=== PATIENT | male | born 1970 | race Hispanic/Latino ===

== ENCOUNTER 2016-06-07 10:52 | Emergency (ER) | payer SELFPAY ==
[~2016-06-07 10:52] MED LIST: BACL20TA PO; HYDR1TAB69 PO; MIRT30TA PO; PROT40T PO; TYL325 PO; tramadol PO
[2016-06-07 10:56] VITALS: BP 164/101; PULSE 63; RESP 18; O2SAT 98
--- NOTE | 2016-06-07 10:58 | ED.REPORT ---
HPI-Chest Pain 40 and Over Date of Service Jun 07, 2016 ED Provider: Otherwise healthy 46-year-old male presents with chief complaint of tightness in his chest. He reports a one-month history of tightness in his chest that has at times been associated with pain on the left side of his chest radiating into his arm. Intermittent over the last month. He has had periods where he felt weak and has fallen. He reports pain with inspiration, reduced exercise tolerance, palpitations and orthopnea. 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 He denies sick contacts, cough, wheezing, fever, chills, travel, recent hospitalizations, recent trauma, upper respiratory symptoms. Denies history of cancer, [place], heart disease, diabetes, hypertension, hyperlipidemia. He currently takes 81 mg of aspirin daily Nursing Notes Stated Complaint: CHEST PAIN Chief Complaint: Chest Pain Nursing Notes Reviewed: Yes Allergies: Coded Allergies: No Known Allergies (Unverified Allergy, Unknown, 06/07/16) Scheduled Azithromycin (Zithromax (Z-Nba)) 250 Mg Tablet 250 MG PO DIRECTED Take two tablets by mouth on day 1, then take one tablet daily on days 2 through 5. General Time Seen by MD: 10:57 Chief Complaint Chest pain Hx Obtained From: Patient Arrived By: Walk-in Sudden in Onset?: No Review of Systems Review of Systems Note: Negative unless stated otherwise in history of present illness Cardiovascular: Reports: Chest pain Complete sys rev & neg: except as marked. Physical Exam General: Well appearing, well developed, obese, no acute distress. Head: Atraumatic, normocephalic. No mastoid tenderness. Eyes: No scleral icterus or injection. No discharge. PERRL. Vision grossly intact. Ears: Pinna and tragus nontender with manipulation. External auditory canal patent, atraumatic and without discharge. Tympanic membrane riggins, shiny and translucent without fluid, bulging, retraction or perforation. Hearing grossly intact. Nose: Symmetrical, nares patent without discharge. No frontal or maxillary sinus tenderness. Mouth/pharynx: normal dentition, mucus membranes moist. Tonsils 2+ and symmetrical, uvula midline. Pharynx noninjected, no cobblestoning or discharge. Voice clear. Neck: No tenderness or lymphadenopathy. Trachea midline. Respiratory: Crackles noted in left lower lung base. Regular rate and rhythm. Cardiovascular: Regular rate and rhythm, without murmur, gallop or rub. No pedal edema. Gastrointestinal: Abdomen flat and non-tender without guarding or rebound. Bowel sounds normoactive. Skin: Warm and dry. Neurological: Grossly nonfocal. Psychological: Alert and oriented. Speech appropriate, linear and logical. Behavior appropriate. Initial Vital Signs Vital Signs (First) Date Time Temp Pulse Resp B/P Pulse Ox O2 Delivery O2 Flow Rate FiO2 06/07/16 10:56 36.4 63 18 164/101 98 Room Air Initial VS: Reviewed Interpretation & Diagnostics Lab Results Interpretation Result Diagram: 06/07/16 1115 06/07/16 1115 Test 06/07/16 11:15 White Blood Count 8.7th/mm3 (3.8-10.1) Red Blood Count 5.70mil/mm3 (4.40-5.80) Hemoglobin 16.4g/dL (13.8-17.2) Hematocrit 47.7% (41.0-50.0) Mean Corpuscular Volume 83.7fL (81-100) Mean Corpuscular Hemoglobin 28.8pg (27.0-35.0) Mean Corpuscular Hemoglobin Concent 34.4% (32.0-37.0) Red Cell Distribution Width 15.2% (12.3-15.4) Platelet Count 208bil/L (150-400) Neutrophils (%) (Auto) 62.6% (40-74) Lymphocytes (%) (Auto) 28.8% (14-46) Monocytes (%) (Auto) 6.0% (4-12) Eosinophils (%) (Auto) 2.2% (0-5) Basophils (%) (Auto) 0.2% (0-3) Sodium Level 137mEq/L (134-144) Potassium Level 4.1mEq/L (3.5-5.2) Chloride Level 96mEq/L (97-108) Carbon Dioxide Level 24mmol/L (18-29) Blood Urea Nitrogen 13mg/dL (6-24) Creatinine 0.77mg/dL (0.76-1.27) Estimat Glomerular Filtration Rate 117mL/min (>59) Glucose Level 188mg/dL (60-99) Calcium Level 8.8mg/dL (8.5-10.1) Magnesium Level 2.1mg/dL (1.6-2.6) Total Bilirubin 0.6mg/dL (0.0-1.2) Aspartate Amino Transf (AST/SGOT) 58U/L (0-50) Alanine Aminotransferase (ALT/SGPT) 72U/L (0-44) Alkaline Phosphatase 68U/L (25-150) Troponin T 0.010ug/L (0.0-0.011) Total Protein 7.6g/dL (6.4-8.4) Albumin 4.5g/dL (3.4-5.0) X-Ray Chest Interpretation Chest Xray Interpretation: PROCEDURE: X-RAY CHEST ONE VIEW, PORTABLE ([id number]) INDICATIONS: Chest pain. IMPRESSION: Left basilar pneumonia or atelectasis. Recommend for correlation. View: Portable Interpretation / Wet Read by: Interpret - Radiologist, Avani - [facility] Re-Eval/Medical Decision Med Decision/Clinical Course Otherwise healthy 46-year-old male presents with a 1 month history of chest tightness. All aspects of his history are not concerning for cardiac cause, EKG and troponin are reassuring. Chest x-ray reveals a left lower lobe pneumonia which is supported by crackles heard on physical exam. Physical examination is all otherwise reassuring. Patient denies comorbidities, recent hospitalizations. I believe this is community-acquired pneumonia and treated with azithromycin. Advised rest, hydration, primary care follow-up, return precautions Counseled Regarding: Diagnosis, Lab results, Need for follow-up, When/why to return to ED Discharge & Departure Primary Impression: Pneumonia Pneumonia type: due to unspecified organism Laterality: left Lung location : lower lobe of lung Qualified Code: J18.9 - Pneumonia, unspecified organism Disposition: Home Discharge Condition All VS Reviewed: Yes Condition: Stable Patient Instructions: Community-acquired Pneumonia (GEN) Additional Instructions: Evaluation for chest tightness in the emergency department. We did number of tests on her heart, and are all reassuring. I do not think this is a heart attack or heart disease. However your chest x-ray shows a possible pneumonia. This is supported by my findings and the physical exam. I will prescribe you an ecchymotic medication to take for 5 days. Rest as much as he can over that time, and be sure to take all 5 days of medication. I will provide you with a referral to primary care provider please contact them tomorrow to arrange follow -up in approximately 5 days, to make sure this is progressing as expected. Return to emergency department for any new or worsening symptoms including difficulty breathing, high fever, increasing weakness. Evaluacion por oprecion en el pecho en el Departemento de Emergencias. Le hicimos varios estudios de christian erlinda, y todos son reafirmantes. No creo que esto sea un infarto ni enfermedad del erlinda. Sin embargo dorys noe x del pecho muestran kiko posible pneumonia. Bethany es reenforzado for mi examen fisico. Le recetare un medicamento ecchimotico para tomarlo por 5 mcbride. Descanse lo mas que pueda y asegurese de anatoly el medicamento por los 5 mcbride completos. Le dare el nombre de un doctor de cabecera contactelo maana para hacer un seguimiento en aproximadamente 5 mcbride, para estar seguros que se esta mejorando saba se espera. Regrese al Departamento de Emergencias si tiene sintomas nuevos o le empeoran los existentes, incluyendo dificultad para respitar, fiebre riki, le aumenta la debilidad. fc-pediatric nephrologist EDSupervising Provider for APC: Eliceo Salas MD Attestation Portions of this note were transcribed by Clemente Belle. I, Dr. Salas personally performed the history, physical exam and medical decision-making; I reviewed and confirmed the accuracy of the information in the transcribed note. Signed by Nayely Santiago, 06/07/16 - 1200 Attending Statement Attending attestation: I saw this patient in conjunction with Ronny Vivas PA-C. Patient was discussed in detail and I agree with the workup, evaluation, treatment and disposition. Eliceo Blas MD, MD Jun 07, 2016 10:58 CLEMENTE BELLE Jun 07, 2016 11:01 Ronny Vivas PA-C Jun 07, 2016 11:47
[2016-06-07 11:19] LABS: BASOPHILS % (AUTO) 0.2 % (0-3); EOSINOPHILS % (AUTO) 2.2 % (0-5); Mean Corpuscular Hemoglobin 28.8 pg (27.0-35.0); Mean Corpuscular Volume 83.7 fL (81-100); NEUTROPHILS % (AUTO) 62.6 % (40-74); Platelet Count 208 bil/L (150-400)
--- NOTE | 2016-06-07 11:39 | DRSVH ---
PROCEDURE: X-RAY CHEST ONE VIEW, PORTABLE ([id number]) INDICATIONS: Chest pain. TECHNIQUE: One view of the chest was acquired. COMPARISON: [facility] [place], CR, CHEST 2VW, 05/08/2008, 16:35. FINDINGS: Surgical changes and devices: None. Lungs and pleura: No pleural effusions or pneumothorax. Left basilar opacity may be infiltrate or at electasis. There is a right hemidiaphragm eventration. Mediastinum: Mediastinal contours appear normal. Heart size is normal. Bones and chest wall: No suspicious bony lesions. Overlying soft tissues appear unremarkable. IMPRESSION: Left basilar pneumonia or atelectasis. Recommend for correlation. Dictated by: Stephanie Pires M.D. on 06/07/2016 at 11:34 Approved by: Stephanie Pires M.D. on 06/07/2016 at 11:38
[2016-06-07 11:47] LABS: TROPONIN T 0.01 ug/L (0.0-0.011)
[2016-06-07 11:58] LABS: Magnesium 2.1 mg/dL (1.6-2.6)
[2016-06-07] MEDS ORDERED: AZIT250T4 PO (12:33)
[2016-06-07 12:40] VITALS: BP 172/100; PULSE 66; RESP 20; O2SAT 97
== END 2016-06-07 12:41 | disposition home or self-care (01) ==
LOC: SED 10:52
DX: J18.9 Pneumonia, unspecified organism (principal); R07.89 Other chest pain

== ENCOUNTER 2016-06-09 22:39 | Emergency (ER) | payer SELFPAY ==
[~2016-06-09 22:39] MED LIST changes: +AZIT250T4 PO; -BACL20TA PO; -HYDR1TAB69 PO; -MIRT30TA PO; -PROT40T PO; -TYL325 PO; -tramadol PO
[2016-06-09 22:56] VITALS: BP 143/93; PULSE 59; O2SAT 97
--- NOTE | 2016-06-09 23:27 | ED.REPORT ---
HPI-Headache Date of Service Jun 09, 2016 ED Provider: MD Karo This is a 46 year old male presenting to the emergency department with headache that began yesterday. Describes intermittent headache that is currently rated at 6/10. Denies photophobia, nausea, vomiting, dizziness, blurry vision, or lightheadedness. Pt in the ED 2 days ago with chest tightness, discharged with azithromycin for left lower lobe pneumonia. Nursing Notes Stated Complaint: HIGH BLOOD PRESSURE Chief Complaint: Headache Nursing Notes Reviewed: Yes Allergies: Coded Allergies: No Known Allergies (Unverified Allergy, Unknown, 06/07/16) Scheduled Azithromycin (Zithromax (Z-Nba)) 250 Mg Tablet 250 MG PO DIRECTED Take two tablets by mouth on day 1, then take one tablet daily on days 2 through 5. Trazodone (Trazodone) 100 Mg Tablet 100-200 MG PO HS Scheduled PRN Metoclopramide (Metoclopramide) 10 Mg Tablet 10 MG PO QID PRN PRN Headache General Time Seen by MD: 23:27 Chief Complaint Headache Hx Obtained From: Patient Arrived By: Walk-in Sudden in Onset?: Yes Onset Occurred: Yesterday Symptom Duration: Since onset Severity: Current: Moderate Pertinent Negative: Pt denies other symptoms Recent Healthcare: No recent hospitalization, Recent doctor visit Similar Sx Previous: No Past Medical History Past Medical History Denies Past Surgical History Denies Ambulatory Status Independent Review of Systems Constitutional: Denies: Chills, Fever Eyes: Denies: Photophobia GI: Denies: Abdominal pain, Nausea, Vomiting Neurologic: Reports: Headache, Denies: Change LOC, Confusion, Lightheaded Complete sys rev & neg: except as marked. Physical Exam Initial Vital Signs Vital Signs (First) Date Time Temp Pulse Resp B/P Pulse Ox O2 Delivery O2 Flow Rate FiO2 06/09/16 22:56 36.2 59 143/93 97 Room Air 06/10/16 02:06 16 Initial VS: Reviewed ENT: Mucous membranes moist, Conjunctiva normal, No scleral icterus Respiratory: Breath sounds normal, Clear to auscultation, No respiratory distress Cardiovascular: Regular rate & rhythm, Heart sounds normal, Intact distal pulses Abdomen / GI: Soft, Non-tender, No guarding, No rebound, No distention Extremities: Vascular intact, Neuro intact, No swelling, No tenderness Skin: Warm, Dry, No cyanosis Psychiatric: Mood/affect normal General/Constitutional: Awake, Alert Head / Eyes: PERRL, EOMI Neck: Atraumatic, Supple, No meningismus, Full range of motion Neurologic: Oriented X3, Speech NL, No motor deficits, No sensory deficits, CN II - XII intact Interpretation & Diagnostics CT HEAD CONCLUSION: Normal noncontrast CT scan of the head. Radiologist: Santiago Cornejo MD Lab Results Interpretation Result Diagram: 06/10/16 0010 06/10/16 0010 Test 06/10/16 00:10 White Blood Count 10.3th/mm3 (3.8-10.1) Red Blood Count 5.84mil/mm3 (4.40-5.80) Hemoglobin 16.6g/dL (13.8-17.2) Hematocrit 49.1% (41.0-50.0) Mean Corpuscular Volume 84.1fL (81-100) Mean Corpuscular Hemoglobin 28.4pg (27.0-35.0) Mean Corpuscular Hemoglobin Concent 33.8% (32.0-37.0) Red Cell Distribution Width 15.1% (12.3-15.4) Platelet Count 202bil/L (150-400) Neutrophils (%) (Auto) 53.7% (40-74) Lymphocytes (%) (Auto) 34.7% (14-46) Monocytes (%) (Auto) 8.8% (4-12) Eosinophils (%) (Auto) 2.1% (0-5) Basophils (%) (Auto) 0.4% (0-3) Sodium Level 140mEq/L (134-144) Potassium Level 4.2mEq/L (3.5-5.2) Chloride Level 101mEq/L (97-108) Carbon Dioxide Level 28mmol/L (18-29) Blood Urea Nitrogen 12mg/dL (6-24) Creatinine 0.88mg/dL (0.76-1.27) Estimat Glomerular Filtration Rate 100mL/min (>59) Glucose Level 99mg/dL (60-99) Calcium Level 9.7mg/dL (8.5-10.1) Total Bilirubin 0.9mg/dL (0.0-1.2) Aspartate Amino Transf (AST/SGOT) 47U/L (0-50) Alanine Aminotransferase (ALT/SGPT) 70U/L (0-44) Alkaline Phosphatase 67U/L (25-150) Total Protein 7.8g/dL (6.4-8.4) Albumin 4.7g/dL (3.4-5.0) Hold Lujan Top Tube Received (Received) Re-Eval/Medical Decision Med Decision/Clinical Course CT brain was negative for subarachnoid hemorrhage or mass. Mr. Spencer declined lumbar puncture. He felt much better with treatment. He is mostly concerned about his chronically elevated blood pressure. His old blood pressure been elevated each time he checks it for the past 10 days. He was seen for chest pain. He has follow-up on Tuesday. After discussing this with him we will start him on hydrochlorothiazide daily. He will check his blood pressure daily and he will keep his Tuesday follow-up. Counseled Regarding: Diagnosis, Lab results, Need for follow-up, When/why to return to ED Discharge & Departure Impression: Primary Impression: Headache Headache type: unspecified Headache chronicity pattern: acute headache Intractability: not intractable Qualified Code: R51 - Headache Additional Impression: High blood pressure Hypertension type: unspecified secondary hypertension Hypertension goal: unspecified goal Qualified Code: I15.9 - Secondary hypertension, unspecified Disposition: Home Discharge Condition All VS Reviewed: Yes Condition: Stable Patient Instructions: Acute Headache (ED) Additional Instructions: Take hydrochlorothiazide as prescribed. Follow up with your primary care provider at your scheduled appointment on Tuesday. Return to the emergency department if you develop any new or worsening symptoms. Checked her blood pressure daily. Stop taking the hydrochlorothiazide if her blood pressure is ever less than 120/80 systolic. When you see your doctor on Tuesday see if the hydrochlorothiazide is the medication they recommend. Do not drive tonight. Do not hesitate to return if any problems or any worsening symptoms. Referrals: Luli Cortes DO (PCP) Scribe Attestation Portions of this note were transcribed by Francisco Javier Douglass. I, Dr. Huddleston personally performed the history, physical exam and medical decision-making; I reviewed and confirmed the accuracy of the information in the transcribed note. Signed by Nayely Thompson, 06/09/2016 at 03:00. Homar Huddleston DO Jun 09, 2016 23:27 FRANCISCO JAVIER DOUGLASS Jun 09, 2016 23:29
[2016-06-10 00:21] LABS: BASOPHILS % (AUTO) 0.4 % (0-3); EOSINOPHILS % (AUTO) 2.1 % (0-5); MONOCYTES % (AUTO) 8.8 % (4-12); Mean Corpuscular Hemoglobin 28.4 pg (27.0-35.0); Mean Corpuscular Volume 84.1 fL (81-100); NEUTROPHILS % (AUTO) 53.7 % (40-74); Platelet Count 202 bil/L (150-400)
[2016-06-10] MEDS ORDERED: HYDROcodone-APAP 5-325 mg Tablet PO ONE (00:40)
[2016-06-10 02:06] VITALS: BP 138/100; PULSE 53; RESP 16; O2SAT 95
[2016-06-10 02:09] VITALS: BP 136/98
[2016-06-10 02:19] VITALS: BP 136/98; PULSE 53; RESP 16; O2SAT 95
--- NOTE | 2016-06-10 02:21 | DRSVH ---
PROCEDURE: CT BRAIN WITHOUT CONTRAST ([id number]) INDICATIONS: headache TECHNIQUE: Noncontrast 4.5 mm thick angled axial sections acquired from the foramen magnum to the vertex, with c oronal reformats. COMPARISON: None. FINDINGS: Image quality: Excellent. CSF spaces: Basal cisterns are patent. No extra-axial fluid collections. Ventricles are normal in size and shape. Brain: No midline shift. No intracranial masses or hemorrhage. Broussard-white matter interface is norm al. There is a small previously present calcification at the posterior medial aspect of the left cer ebrum, series 2 image 21, without adjacent edema or interval change in size over time. Skull and face: Calvarium and visualized facial bones are intact, without suspicious lesions. Sinuses: Visualized sinuses and mastoids are clear. IMPRESSION: No acute disease as source of current symptoms is found. Stable appearing small calcifi cation within the subcortical white matter of the posterior left cerebrum again noted. Note: These findings are concordant with the preliminary interpretation. Dictated by: Grey Smith M.D. on 06/10/2016 at 2:17 Approved by: Grey Smith M.D. on 06/10/2016 at 2:19
[2016-06-10] MEDS ORDERED: TRAZ-118 PO (11:02)
[2016-06-10] MEDS ORDERED: METO10TA3 PO (11:09)
== END 2016-06-10 02:20 | disposition home or self-care (01) ==
LOC: SED 22:39
DX: R51 Headache (principal); I10 Essential (primary) hypertension; Z87.01 Personal history of pneumonia (recurrent)

== ENCOUNTER 2016-06-10 07:39 | Emergency (ER) | payer SELFPAY ==
[~2016-06-10] VITALS: Ht 167.6 cm; Wt 105.9 kg
[2016-06-10 07:44] VITALS: BP 153/94; PULSE 56; RESP 14; O2SAT 96
[2016-06-10 09:34] VITALS: BP 144/94; PULSE 63
[2016-06-10] MEDS ORDERED: TRAZ-118 PO (11:02)
--- NOTE | 2016-06-10 11:02 | ED.REPORT ---
HPI-General Illness Date of Service Jun 10, 2016 ED Provider: Loc Laureano MD 46 year old male with a history of hypertension who presents to the ED due to headaches and 6/10 chest tightness. Pt was seen last night in the ER due to headache and hypertension (started on hydrochlorothiazide) and was seen 3 days ago for pneumonia (started on an azithromycin). Pt now reports insomnia secondary to his symptoms for 3 days. Additionally, he reports associated chest tightness that has been intermittent for 1 month. This typically lasts for about 20 minutes before resolving spontaneously. Pt denies cough and fever. Pt denies a hx of heart disease. He is not aware of any family history of cardiac disease. CT head last night was normal yesterday. Nursing Notes Stated Complaint: HIGH PRESSURE Chief Complaint: General Complaint Nursing Notes Reviewed: Yes Allergies: Coded Allergies: No Known Allergies (Unverified Allergy, Unknown, 06/07/16) Scheduled Azithromycin (Zithromax (Z-Nba)) 250 Mg Tablet 250 MG PO DIRECTED Take two tablets by mouth on day 1, then take one tablet daily on days 2 through 5. Trazodone (Trazodone) 100 Mg Tablet 100-200 MG PO HS Scheduled PRN Metoclopramide (Metoclopramide) 10 Mg Tablet 10 MG PO QID PRN PRN Headache General Time Seen by MD: 07:46 Chief Complaint Chest pain, Headache Hx Obtained From: Patient Arrived By: Walk-in Sudden in Onset?: No Onset Occurred: 3 days ago Symptom Duration: Since onset Location: : Chest: Head Quality: Painful Severity: Current: Moderate Associated with: Denies: Fever, Shortness of breath, Vomiting Pertinent Negative: Relieved by nothing Past Medical History Past Medical History Hypertension Depression Past Surgical History Denies Smoking History Never Smoker Ambulatory Status Independent Review of Systems Full Review of Systems Constitutional: Denies: Chills, Fever Respiratory: Denies: Non-productive cough, Shortness of breath Cardiovascular: Reports: Chest pain, Denies: Edema GI: Denies: Abdominal pain, Diarrhea, Vomiting Musculoskeletal: Denies: Back pain, Extremity pain Skin: Denies Diaphoresis, Denies Rash Neurologic: Reports: Headache, Denies: Numbness, Weakness Psychiatric: Reports: Insomnia Complete sys rev & neg: except as marked. Physical Exam Vital Signs Vital Signs Date Time Temp Pulse Resp B/P Pulse Ox O2 Delivery O2 Flow Rate FiO2 2/9/17 09:34 63 144/94 06/10/16 07:44 36. 56 14 153/94 96 Room Air Initial VS: Reviewed General/Constitutional: Well-developed, Well-nourished Head / Eyes: Atraumatic, Normocephalic, PERRL ENT: Mucous membranes moist, Conjunctiva normal, No scleral icterus Neck: Supple, Full range of motion Respiratory: Breath sounds normal, Clear to auscultation, No respiratory distress Cardiovascular: Regular rate & rhythm, Heart sounds normal, Intact distal pulses Abdomen / GI: Soft, Non-tender, No guarding, No rebound, No distention Extremities: Vascular intact, Neuro intact, No swelling, No tenderness Skin: Warm, Dry, No cyanosis Neurologic: Alert, Oriented, Nonfocal Psychiatric: Mood/affect normal, Behavior normal, Normal thought content Re-Eval/Medical Decision Med Decision/Clinical Course This gentleman is a very anxious about his blood pressure. He has been having a months worth of intermittently exertional chest discomfort with jaw achiness for which he was evaluated a couple of days ago with chest x-ray EKG and troponin which were all normal and reassuring. The pattern of these symptoms is not changed. Continue taking aspirin daily. He was discharged with a diagnosis of pneumonia couple of days ago which I do not think the history bears out sufficiently to warrant empiric therapy and therefore have discontinued the antibiotic. His blood pressure is moderately elevated but not to the point that I think symptoms would be ascribed to said blood pressure. Follow-up Tuesday as planned. Trazodone 1 or 2 tablets at bedtime as needed for sleep. Take hydrochlorothiazide as directed for blood pressure daily. Source of Hx: Old records Time of Eval: 11:04 Re-Evaluation/Progress Note: Discussed plan for d/c and f/u with PCP. Pt understands and agrees with plan. All questions addressed. Counseled Regarding: Diagnosis, Need for follow-up, When/why to return to ED Discharge & Departure Primary Impression: Headache Headache type: unspecified Headache chronicity pattern: unspecified pattern Intractability: not intractable Qualified Code: R51 - Headache Additional Impressions: Insomnia Insomnia type: unspecified Qualified Code: G47.00 - Insomnia, unspecified Chest pain Chest pain type: unspecified Qualified Code: R07.9 - Chest pain, unspecified Hypertension Hypertension type: unspecified secondary hypertension Hypertension goal: unspecified goal Qualified Code: I15.9 - Secondary hypertension, unspecified Disposition: Home Discharge Condition All VS Reviewed: Yes Condition: Stable Patient Instructions: Chronic Hypertension (ED) Additional Instructions: I do not suspect and immediately dangerous cause for your symptoms. The blood pressure readings are indeed too high but nothing to worry about this moment. Take the HCTZ daily as prescribed previously. Also, take aspirin daily as recommended. You should follow up with your doctor on Tuesday as planned to consider further evaluation for your chest pain. Chest pain testing that you have had to this point does not reveal any obvious heart attack, but you do need further evaluation for this. Regarding your insomnia, I recommend trazodone 100-200 mg at bedtime as needed for sleep. Regarding the headache and stomach symptoms I recommend metoclopramide as needed. I see no convincing evidence of pneumonia on the x-ray despite the official reading. Without obvious fever or cough I recommend that you discontinue the antibiotic for now. Referrals: Luli Cortes DO (PCP) Sebastienibe Attestation Portions of this note were transcribed by Isela Styles. I, Dr. Laureano personally performed the history, physical exam and medical decision-making; I reviewed and confirmed the accuracy of the information in the transcribed note. Signed by: Nayely Alvarado, 06/10/2016 1103 copies to: Luli Cortes Kirk H MD Jun 10, 2016 11:02 Isela Styles Jun 10, 2016 11:05
[2016-06-10] MEDS ORDERED: METO10TA3 PO (11:09)
[2016-06-10 11:10] VITALS: BP 152/95; PULSE 59; RESP 16; O2SAT 95
== END 2016-06-10 11:11 | disposition home or self-care (01) ==
LOC: SED 07:39
DX: R51 Headache (principal); G47.00 Insomnia, unspecified; R07.9 Chest pain, unspecified; I10 Essential (primary) hypertension

== ENCOUNTER 2016-06-15 01:53 | Emergency (ER) | payer SELFPAY ==
[~2016-06-15] VITALS: Ht 165.1 cm; Wt 102.7 kg
[~2016-06-15 01:53] MED LIST changes: +METO10TA3 PO; +TRAZ-118 PO
[2016-06-15 01:55] VITALS: BP 149/101; PULSE 69; RESP 16; O2SAT 96
[2016-06-15 02:56] LABS: BASOPHILS % (AUTO) 0.2 % (0-3); EOSINOPHILS % (AUTO) 1.1 % (0-5); MONOCYTES % (AUTO) 6.9 % (4-12); Mean Corpuscular Hemoglobin 28.4 pg (27.0-35.0); Mean Corpuscular Volume 84.7 fL (81-100); NEUTROPHILS % (AUTO) 60.7 % (40-74); Platelet Count 229 bil/L (150-400)
[2016-06-15 03:34] LABS: Creatine Kinase 511 U/L (21-232)
[2016-06-15 03:35] VITALS: BP 133/77; PULSE 63; RESP 12; O2SAT 94
[2016-06-15 04:43] LABS: Magnesium 2.5 mg/dL (1.6-2.6)
[2016-06-15 04:52] VITALS: BP 135/92; PULSE 59; RESP 18; O2SAT 94
--- NOTE | 2016-06-15 05:34 | ED.REPORT ---
HPI-Chest Pain 40 and Over Date of Service Jun 15, 2016 ED Provider: Benny Mendoza MD 46yoM with past medical history remarkable for recent pneumonia diagnosis and vertebral fusion surgery presents with left sided chest pain radiating into his left arm and neck. The patient states that his left leg is also effected. HE believes this is an allergic reaction to the moxifloxacin he started today. The issues with his arms and legs is described as a sensations that his extremities are not getting enough blood flow. The chest pain is described as intermittent sharp stabbing pain located in the anterior mid axillary line. The patient denies these symptoms in the past. He states that this all started at approximately 1am on 06/15/2016. Nursing Notes Stated Complaint: LEG CRAMPS Chief Complaint: General Complaint Nursing Notes Reviewed: Yes Allergies: Coded Allergies: No Known Allergies (Unverified Allergy, Unknown, 06/15/16) Scheduled Azithromycin (Zithromax (Z-Nba)) 250 Mg Tablet 250 MG PO DIRECTED Take two tablets by mouth on day 1, then take one tablet daily on days 2 through 5. Trazodone (Trazodone) 100 Mg Tablet 100-200 MG PO HS Scheduled PRN Metoclopramide (Metoclopramide) 10 Mg Tablet 10 MG PO QID PRN PRN Headache General Time Seen by MD: 02:20 Chief Complaint Chest pain Hx Obtained From: Patient Arrived By: Walk-in Sudden in Onset?: Yes Onset Occurred: 1 - 4 hours ago Symptom Duration: 1 - 4 hours Location: : Chest left Quality: Sharp, Stabbing Radiation: : Arm left: Neck Severity: Current: Mild Severity: Maximum: Moderate Context Related History: Reports: Pneumonia Recent Healthcare: Recent testing, Previous diagnosis, Prior workup Similar Sx Previous: Yes Risk Factors )( CAD Risk Stratification Risk factors reviewed )( PE Risk Stratification Risk factors reviewed, No risk factors Past Medical History Past Medical History Hypertension Depression Past Surgical History lumbar fusion Smoking History Never Smoker Social History Alcohol Use: Denies alcohol use Drug Use: Denies drug use Other Social History: Good social support, Local resident Ambulatory Status Independent Review of Systems Basic Review of Systems Eyes: Vision NL ENT: Hearing NL, No pharyngeal pain : No dysuria, No frequency Hematologic: No bleeding, No bruising Endocrine: No cold intolerance, No weight gain, No weight loss Allergy / Immune: No allergy Constitutional: Reports: Chills, Denies: Fever GI: Denies: Nausea, Vomiting Musculoskeletal: Reports: Extremity swelling Skin: Denies Unexplained bruises Neurologic: Denies: Dizziness, Headache, Problem walking Complete sys rev & neg: except as marked. Physical Exam Initial Vital Signs Vital Signs (First) Date Time Temp Pulse Resp B/P Pulse Ox O2 Delivery O2 Flow Rate FiO2 06/15/16 01:55 36.2 69 16 149/101 96 Room Air Initial VS: Reviewed Head / Eyes: Atraumatic, Normocephalic, PERRL ENT: Mucous membranes moist, Conjunctiva normal, No scleral icterus Neck: Supple, Non-tender, Full range of motion Back: No CVA tenderness Lymphatic: No lymphadenopathy Extremities: Vascular intact, Neuro intact, No swelling, No tenderness Skin: Warm, Dry, No cyanosis Neurologic: Alert, Oriented, Nonfocal Psychiatric: Mood/affect normal, Behavior normal, Normal thought content General/Constitutional: Awake, Alert, Well appearing, Well developed, Well nourished, Cooperative, Not toxic appearing Distress / Hydration: Positive: Distress mild Respiratory / Chest: Breath sounds NL, Breath sounds = bilat, No respiratory distress, No rales, No rhonchi, No wheezing, No stridor, No chest tenderness Cardiovascular: Heart rate NL, Regular rhythm, Heart sounds NL, No murmurs, Peripheral circulation NL, Pulses = bilaterally, No gross BP differential Abdomen: Soft, Non-tender, McBurney's non-tender, No guarding, No rebound, BS normoactive, No distention, No hernia, No palpable mass Lower Extremity / Pelvis / MS: Inspection NL, No swelling, Non-tender, No erythema, No deformity, Neurologic intact, Vascular intact, No edema Neurologic: Speech NL, No motor deficits, No sensory deficits, CN II - XII intact, Cerebellar NL, Gait NL Interpretation & Diagnostics Lab Results Interpretation Result Diagram: 06/15/16 0245 06/15/16 0245 Test 06/15/16 02:45 06/15/16 05:00 White Blood Count 10.8th/mm3 (3.8-10.1) Red Blood Count 5.63mil/mm3 (4.40-5.80) Hemoglobin 16.0g/dL (13.8-17.2) Hematocrit 47.7% (41.0-50.0) Mean Corpuscular Volume 84.7fL (81-100) Mean Corpuscular Hemoglobin 28.4pg (27.0-35.0) Mean Corpuscular Hemoglobin Concent 33.5% (32.0-37.0) Red Cell Distribution Width 14.9% (12.3-15.4) Platelet Count 229bil/L (150-400) Neutrophils (%) (Auto) 60.7% (40-74) Lymphocytes (%) (Auto) 30.8% (14-46) Monocytes (%) (Auto) 6.9% (4-12) Eosinophils (%) (Auto) 1.1% (0-5) Basophils (%) (Auto) 0.2% (0-3) Erythrocyte Sedimentation Rate 1mm/hr (0-15) D-Dimer < 0.5mg/L (<0.50) Sodium Level 138mEq/L (134-144) Potassium Level 3.7mEq/L (3.5-5.2) Chloride Level 98mEq/L (97-108) Carbon Dioxide Level 25mmol/L (18-29) Blood Urea Nitrogen 14mg/dL (6-24) Creatinine 1.07mg/dL (0.76-1.27) Estimat Glomerular Filtration Rate 80mL/min (>59) Glucose Level 123mg/dL (60-99) Calcium Level 9.2mg/dL (8.5-10.1) Magnesium Level 2.5mg/dL (1.6-2.6) Total Bilirubin 1.1mg/dL (0.0-1.2) Aspartate Amino Transf (AST/SGOT) 48U/L (0-50) Alanine Aminotransferase (ALT/SGPT) 63U/L (0-44) Alkaline Phosphatase 72U/L (25-150) Total Creatine Kinase 511U/L (21-232) Creatine Kinase MB 3.2ng/mL (0.0-10.4) Creatine Kinase MB % % (0.0-5.0) C-Reactive Protein 0.3mg/dL (0.0-0.5) Total Protein 7.8g/dL (6.4-8.4) Albumin 4.7g/dL (3.4-5.0) Hold Lujan Top Tube Received (Received) Troponin T 0.010ug/L (0.0-0.011) ECG Interpretation ECG Interpretation: NSIVCD with right axis deviation Interpreted by: ED physician Normal ECG Interpretation: Normal rate, Normal sinus rhythm, Normal QRS ( wide normal) Repeat ECG: Repeat ECG unchanged Re-Eval/Medical Decision Med Decision/Clinical Course The patient has a difficult constellation of symptoms. His unilateral complaint with his extremities is concerning however the patient had a head CT done earlier this week without issue. The patient has been ruled out of cardiac causes numerous times including today 06/15 and continues to present with very similar symptoms as in the past week. The patient has a cardiac stress test tomorrow which may shed some light on this issue. 46-year-old with multiple symptoms difficult to reconcile with a physiologic issue. He does not appear to have acute coronary syndrome, and a stress test is planned for tomorrow to evaluate fully. He has only left-sided arm and leg symptoms, without face symptoms, without speech or visual disturbance. He does have osteoarthritis of the spine and spinal stenosis, and may just have radiculopathies at multiple levels accounting for his symptoms. He is discharged now in stable condition, with no evidence of acute pathology. Stress echo scheduled for a.m. Inflammatory screen pending. D-dimer negative. Review of the prior x-ray confirms some shadowing of the hemidiaphragm on the left, and a technically poor film with lordotic orientation and poor inspiration. He now has a clear hemidiaphragm on the left side, with some persistent density there. We doubt this cluster of symptoms is related to his moxifloxacin. Advised to complete his course. Counseled Regarding: Lab results, Need for follow-up, When/why to return to ED Discharge & Departure Primary Impression: Pneumonia Additional Impressions: Non-cardiac chest pain Cervical radiculopathy Sciatica Ruled Out: Myocardial infarction acute Disposition: Home Discharge Condition All VS Reviewed: Yes Condition: Stable Patient Instructions: Cardiac Stress Test (ED) Additional Instructions: During you visit to [facility] Emergency Department we obtained blood work for cardiac damage, infectious markers, cell counts, inflammatory properties, blood clots and electrolytes. Given the numerous imaging preformed this week none was repeated today. All your lab values were within normal limits and your previous imaging which showed pneumonia has improved over the week. Some diagnosis are difficult to make and possibly your cardiac stress test tomorrow will give some insight into your complaints, unfortunately we were unable to pinpoint and exact cause for your complaints. We were able to rule out an acute heart attack tonight which is important. Your vital signs were stable and safe for discharge. Do not hesitate to call emergency services or your primary care physician if you experience any of the following. - High unrelenting fevers. - Uncontrolled vomiting. - Severe hypertension. - Syncope or loss of consciousness. - Chest pain or severe shortness of breath. Follow up with your cardiology workup and stress test tomorrow and follow up with your primary care physician in 1-2 weeks time following your emergency department visit for medication checks and general well-being. Included is some information about the cardiac stress test that you likely will undergo today, for your own knowledge. Referrals: Luli Cortes DO (PCP) Attending Statement As attending of record for this patient, I conducted an independent history and physical exam, and agree with the resident documentation as above, and as amended. copies to: Luli Cortes NICHOLAS K DO Jun 15, 2016 02:58 Benny Mendoza MD Jun 15, 2016 07:39
[2016-06-15 06:15] VITALS: BP 138/81; PULSE 62; RESP 16; O2SAT 95
[2016-06-15] MEDS ORDERED: Sodium Chloride LOK Flush 10 mL Syringe IVFLUSH SCH (08:30)
== END 2016-06-15 05:57 | disposition home or self-care (01) ==
LOC: SED 01:53
DX: J18.9 Pneumonia, unspecified organism (principal); M54.12 Radiculopathy, cervical region; M54.32 Sciatica, left side; R07.89 Other chest pain; I10 Essential (primary) hypertension; Z98.1 Arthrodesis status

== ENCOUNTER 2016-10-06 22:22 | Emergency (ER) | payer SELFPAY ==
[~2016-10-06] VITALS: Ht 165.1 cm; Wt 100.0 kg
[2016-10-06 22:25] VITALS: BP 137/91; PULSE 102; RESP 16; O2SAT 99
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
[2016-10-06] MEDS ORDERED: Amoxicillin-Clav 875-125 mg Tablet PO ONE (22:35)
[2016-10-06] MEDS ORDERED: TdaP Vaccine 0.5 mL Inj IM ONE (22:35)
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
[2016-10-07] MEDS ORDERED: ASPI81TA3 PO (19:44)
[2016-10-07] MEDS ORDERED: HYDR-656 PO (19:52)
[2016-10-07] MEDS ORDERED: SERT50TA9 PO (19:52)
[2016-10-07] MEDS ORDERED: NAPR500T5 PO (19:52)
[2016-10-07] MEDS ORDERED: LISI-571 PO (19:52)
[2016-10-07] MEDS ORDERED: CYCL10TA9 PO (19:52)
[2016-10-07] MEDS ORDERED: HYDR12.5 PO (19:52)
== END 2016-10-06 23:32 ==
LOC: SED 22:22
DX: S61.051A Open bite of right thumb without damage to nail, initial encounter (principal); Y04.1XXA Assault by human bite, initial encounter; Y93.89 Activity, other specified; Y92.9 Unspecified place or not applicable; Y99.8 Other external cause status; I10 Essential (primary) hypertension; F32.9 Major depressive disorder, single episode, unspecified; Z23 Encounter for immunization

== ENCOUNTER 2016-10-07 19:36 | Emergency (ER) | payer OTHER ==
[~2016-10-07] VITALS: Ht 165.1 cm; Wt 100.0 kg
[2016-10-07 19:36] VITALS: BP 162/98; PULSE 65; RESP 21; O2SAT 97
[2016-10-07] MEDS ORDERED: ASPI81TA3 PO (19:44)
[2016-10-07] MEDS ORDERED: CYCL10TA9 PO (19:52)
[2016-10-07] MEDS ORDERED: HYDR-656 PO (19:52)
[2016-10-07] MEDS ORDERED: LISI-571 PO (19:52)
[2016-10-07] MEDS ORDERED: SERT50TA9 PO (19:52)
[2016-10-07] MEDS ORDERED: NAPR500T5 PO (19:52)
[2016-10-07] MEDS ORDERED: HYDR12.5 PO (19:52)
[2016-10-07 20:04] LABS: BASOPHILS % (AUTO) 0.2 % (0-3); EOSINOPHILS % (AUTO) 0.4 % (0-5); MONOCYTES % (AUTO) 8.1 % (4-12); Mean Corpuscular Hemoglobin 30.1 pg (27.0-35.0); NEUTROPHILS % (AUTO) 72.4 % (40-74); Platelet Count 205 bil/L (150-400)
[2016-10-07 20:22] LABS: TROPONIN T < 0.010 ug/L (0.0-0.011)
[2016-10-07 20:33] LABS: Magnesium 2.3 mg/dL (1.6-2.6)
--- NOTE | 2016-10-07 20:59 | DRSVH ---
PROCEDURE: X-RAY CHEST ONE VIEW, PORTABLE ([id number]) INDICATIONS: chest pain TECHNIQUE: One view of the chest was acquired. COMPARISON: [facility], CR, XR CHEST 2VW, 06/14/2016, 17:09. [facility], CR, XR CHEST 1VW (PORTABLE), 06/07/2016, 11:07. FINDINGS: Surgical changes and devices: None. Lungs and pleura: No pleural effusions or pneumothorax. Lungs are abnormal, with a slightly enlarge d retrocardiac left lower lobe lung mass, when compared to the prior 06/14/16 slightly. This structur e has an estimated craniocaudad length of 3.2 cm, versus previously measured in the same area as perla uring 2.6 cm. Mediastinum: Mediastinal contours appear normal. Heart size is normal. Bones and chest wall: No suspicious bony lesions. Overlying soft tissues appear unremarkable. IMPRESSION: Enlarging retrocardiac left lower lobe lung mass. Recommend contrast-enhanced CT scan e lectively. Dictated by: Grey Smith M.D. on 10/07/2016 at 20:55 Approved by: Grey Smith M.D. on 10/07/2016 at 20:57
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
[2016-10-07 23:59] VITALS: BP 126/86; PULSE 59; RESP 18; O2SAT 97
[2016-10-08] MEDS ORDERED: Amoxicillin-Clav 875-125 mg Tablet PO ONE (01:25)
[2016-10-08 02:49] VITALS: BP 150/103; PULSE 78; RESP 20; O2SAT 95
--- NOTE | 2016-10-08 08:01 | DRSVH ---
PROCEDURE: CT CHEST WITH CONTRAST ([id number]) INDICATIONS: chest pain retrocardiac mass on xray TECHNIQUE: After the administration of intravenous contrast, 5 mm thick sections acquired from the pulmonary api daphne to the posterior costophrenic angles. 7 mm thick coronal and sagittal MIP reformats were acquire d. For radiation dose reduction, the following was used: automated exposure control, adjustment of mA and/or kV according to patient size. COMPARISON: None. FINDINGS: Image quality: Excellent. Lungs and pleura: There is a left lower lobe mass measuring 2.2 x 2.4 x 3.2 CM. Central and periphera l airways are patent and normal in caliber. Mediastinum: Heart size is normal. No pericardial effusion. No mediastinal or hilar adenopathy by size criteria. Thoracic aorta and central pulmonary arteries are normal in size. Esophagus is paul l in caliber. No hiatal hernia. Bones and chest wall: No suspicious bony lesions. No vertebral body compression fractures. No axil paulette or supraclavicular adenopathy by size criteria. Thyroid gland is present. Abdomen: Visualized upper abdominal solid organs appear normal. Upper abdominal bowel loops are nor mal in caliber. IMPRESSION: 1. Suspicious left lower lobe mass. Recommend PET/CT or percutaneous CT-guided biopsy. 2. There are no discrepancies with the pulmonary report. Dictated by: Karl Samuel M.D. on 10/08/2016 at 7:56 Approved by: Karl Samuel M.D. on 10/08/2016 at 7:59
== END 2016-10-08 01:50 ==
LOC: SED 19:36
DX: R07.9 Chest pain, unspecified (principal); R91.8 Other nonspecific abnormal finding of lung field; I10 Essential (primary) hypertension; F32.9 Major depressive disorder, single episode, unspecified; Z79.82 Long term (current) use of aspirin; Z87.01 Personal history of pneumonia (recurrent)
CPT/HCPCS: 36415; 71010; 71260; 80053; 83735; 83880; 84484; 85025; 85378; 93005; 96374; 99285; J1885; Q9967

== ENCOUNTER 2016-12-17 05:35 | Inpatient (IN) | payer MEDICAID ==
[2016-12-17] VITALS (15 sets, daily range): BP systolic 114–144; BP diastolic 70–92; PULSE 65–100; RESP 14–29; O2SAT 96–99
[~2016-12-17] VITALS: Ht 167.6 cm; Wt 90.7 kg
[2016-12-17] MEDS: Lactated Ringer's 1,000 ML IV SCH ×4 (05:00→08:50)
[~2016-12-17 05:35] MED LIST changes: +ASPI-973 PO; -AZIT250T4 PO; +HYDR-656 PO; +LEVO50TA6 PO; +LISI10TA PO; -METO10TA3 PO; +SERT50TA9 PO; -TRAZ-118 PO
[2016-12-17] MEDS ORDERED: CeFAZolin 2 Gm/50 mL D5W IV Premix IV ONE (06:00)
[2016-12-17] MEDS ORDERED: Lactated Ringer's 500 ML IV PRN (07:39)
[2016-12-17] MEDS ORDERED: Lactated Ringer's 1,000 ML IV SCH ×2 (07:39→15:48)
--- NOTE | 2016-12-17 07:39 | PCM.HPANE ---
Patient Data Surgeon Admitting Provider: Attending Provider:Osvaldo Rothman MD Primary Care Physician:Luli Cortes DO Other Provider:Genie Min Anesthesia Reason for Visit Left Lower Lobe Adenocarcinoma Ht/WT & BMI Height (Feet): 5 Height (Inches): 6 Weight (Kilograms): 93.2 Body Mass Index 33.00 Allergies Coded Allergies: No Known Allergies (Verified Allergy, Unknown, 12/13/16) Past Anesthesia History Anesthesia History: Denies:: Abnormal Airway, Anesthesia Reactions, Difficult Intubation, Fam Anesthesia Reaction, Fam Malignant Hypertherm, Malignant Hyperthermia Diabetes History Hx Diabetes?: No MRSA MRSA: No Medications Blood Thinner: Aspirin Last Dose Blood Thinner: Dec 08, 2016 Hypertension Medication: Yes (lisinopril) Home Meds Incl Beta Juliano: No Reported Medications Aspirin 81 Mg Qqctpr15 Mg PO DAILY Ref 0 12/13/16 Levothyroxine 50 Mcg Fhefsk83 Mcg PO DAILY Ref 0 11/18/16 Lisinopril 10 Mg [id number] Mg PO DAILY 30 Days Ref 0 11/18/16 hydrOXYzine Hcl (HydrOXYzine Hcl)25 Mg [id number] Mg PO HS PRN anx 10/07/16 Sertraline HCl (Sertraline)50 Mg [id number] Mg PO DAILY 30 Days Ref 0 10/07/16 History History of ENT Problems?: Yes HEENT History: Positive for:: Dysphagia (THE PAIN HE EXPERIENCES MAKES IT DIFFICULT TO SWALLOW) Denies:: Abnormal Airway Difficult Intubation Hearing Problem Sinus Problem Denture Type: None Teeth Condition: Within Normal Limits Hx of Heart Problems?: Yes Cardiovascular History: Positive for:: Chest Pain (tightness not heart related ) Hypertension Denies:: AICD Abdominal Aortic Aneurism Atrial Fibrillation Cardiac Surgery Congestive Heart Failure Heart Murmur Irregular Heartbeat Pacemaker Valvular Heart Disease Hx of Respiratory Problem?: Yes Respiratory History: Positive for:: Cough Pneumonia (June 2016) Use of Inhalers / NEBS (Albuterol) Denies:: Asthma COPD Hemoptysis Tuberculosis Use of C-PAP Machine Hx Neurologic Problems?: Yes Neurological History: Positive for:: Dizziness (when he gets up to quickly) Denies:: Alzheimer's Disease CVA Dementia Headaches Multiple Sclerosis Parkinson's Disease Seizures TIA Hx of GI Problems?: Yes Hx of Problems?: Yes Genitourinary History: Denies:: HX of Hemodialysis HX of Peritoneal Dialysis: No Male Hx: Denies:: Prostate Problems Scrotal Mass Testicular Surgery Skin History: Denies:: History Skin Disorders? Hx Musculoskeletal Problems?: Yes Musculoskeletal History: Positive for:: Back Injury (low back fusion) Denies:: Degenerative Joint Joint Replacement Musculoskeletal Trauma Osteoarthritis Rheumatoid Arthritis Systemic Lupus Hx of Psycho/Social Problems?: Yes Psycho Social History: Positive for:: Anxiety Hx Depression Hx Surgeries?: Yes (back fusion) Hx Any Other Health Problems?: No Other History: Positive for:: Cancer (Lung) Hospitalization (September 2016) Denies:: Endocrine Disease Thyroid Disease History Blood Transfusions: Positive for:: Accept Blood Products? Denies:: Blood Transfusions Hx Diabetes: No Hx Alcohol Use: NoHx Substance Use: No Smoking Status: Never Smoker Have You Smoked inLast 12 mo: No Stop/Bang S-Snoring: Do You Snore Loudly: Yes T-Tired: feel tired, fatigued: No O-Obsered: Observed not breath: No P-Blood Pressure: treated: Yes B- Body Mass Index > 35 kg/m2: No A- Age over 50: No N- Neck Large Circumference: No G- Gender Male: Yes RIRI Total Score: 3 RIRI Risk Assessment: High Risk, =/>3 Yes RIRI Category 2: Yes Risk Assessment Category Category 1A: Patient has history of documented sleep apnea, and HAS NOT received any narcotic, sedative or anesthesia administration during this stay. Category 1B: Patient has history of documented sleep apnea, and HAS received any narcotic , sedative or anesthesia administration during this stay Category 2: Patient has SUSPECTED Obstructive Sleep Apnea, and HAS received any narcotic , sedative or anesthesia administration during this stay. Category 3: Patient has SUSPECTED Obstructive Sleep Apnea and HAS NOT received narcotic, sedative or anesthesia administration during this stay. Category 4: Outpatient in Procedural Areas with known sleep apnea or who screen positive for High Risk via the STOP/BANG questionnaire. Exam Exam Vital Signs Vital Signs Date Time Temp Pulse Resp B/P Pulse Ox O2 Delivery O2 Flow Rate FiO2 12/17/16 05:50 36.3 65 16 132/90 97 Room Air General Appearance: Alert HEENT/AIRWAY: MP 3, Neck Movement (from, 3 fb) Lungs: Clear to Auscultation Heart: Regular Rate/Rhythm Meds/Labs/Diagnostics Admission Meds Current Medications Lactated Ringer's (Lr) 1,000 ml @ 120 mls/hr Q8H20M IV Last administered on t 05:50; Start 12/17/16 at 05:00; Stop 12/17/16 at 13:19 Plan Impression Patient chart reviewed, patient interviewed and anesthestic plan with risks, benefits, and alternatives discussed, and informed consent obtained. NPO per Anesth. Guidelines: Yes ASA Physical Status: ASA2 Mod Systemic Disease Anesthetic Support Modalities: Arterial Line Anesthetic Plan: GA, Epidural, Postop Vent Bene/Risks/Altern/Consents: Yes HP Complete Prior to Induction: Yes Other Discussed GETA with double lumen tube, arterial line, thoracic epidural and possible post-op ventilation. All questions were answered and he agrees to proceed. Austin Sotelo MD Dec 17, 2016 07:16
[2016-12-17] MEDS ORDERED: Dexamethasone 4 mg/mL Inj IVPUSH PRN (07:40)
[2016-12-17] MEDS ORDERED: EPHEDrine Sulfate 50 mg/mL Inj IV PRN (07:40)
[2016-12-17] MEDS ORDERED: Atropine 1 mg/mL Inj IVPUSH PRN (07:40)
[2016-12-17] MEDS ORDERED: HYDROmorphone 1 mg/mL Inj IVPUSH PRN (07:40)
[2016-12-17] MEDS ORDERED: MetoCLOpramide 5 mg/mL 2 mL Inj IVPUSH PRN ×2 (07:40→15:50)
[2016-12-17] MEDS ORDERED: BUPIVACAINE EPIDURAL SCH (07:40)
[2016-12-17] MEDS ORDERED: FENTANYL 2 MCG/ML EPIDURAL SCH (07:40)
[2016-12-17] MEDS ORDERED: fentaNYL-PF 50 mCg/mL 2 mL Inj IVPUSH PRN (07:40)
[2016-12-17] MEDS ORDERED: Ondansetron 2 mg/mL 2 mL Inj IVPUSH PRN ×3 (07:40→15:50)
[2016-12-17] MEDS ORDERED: Phenylephrine 10,000 mCg/mL Inj IVPUSH PRN (07:40)
[2016-12-17] MEDS ORDERED: EPHEDrine Sulfate 50 mg/mL Inj IVPUSH PRN (07:40)
[2016-12-17] MEDS ORDERED: Bupivacaine-MPF 0.5% 30 mL Inj INFILTRATE ONE (07:46)
[2016-12-17] MEDS: Sodium Chloride LOK Flush 10 mL Syringe IVFLUSH SCH ×2 (08:30→16:30)
[2016-12-17] MEDS ORDERED: fentaNYL 2 mCg/mL-Bupivicaine 0.125% 100 mL Premix EPIDURAL ONE ×2 (09:52→17:29)
[2016-12-17] MEDS ORDERED: Propofol 10,000 mCg/mL 20 mL Inj ONE (10:27)
[2016-12-17] MEDS ORDERED: Dexamethasone 4 mg/mL Inj ONE (10:27)
[2016-12-17] MEDS ORDERED: EPHEDrine/NS 5 mg/mL 5 mL Syringe ONE (10:27)
[2016-12-17] MEDS ORDERED: Cisatracurium 2,000 mCg/mL 10 mL Inj ONE (10:27)
[2016-12-17] MEDS ORDERED: fentaNYL-PF 50 mCg/mL 2 mL Inj ONE ×3 (10:27→17:09)
--- NOTE | 2016-12-17 15:24 | PCM.SURGPO ---
Immediate Operative Note Date of Surgery: Dec 17, 2016 Pre Operative Diagnosis Left Lower Lobe Adenocarcinoma Post Operative Diagnosis Left lower lobe adenocarcinoma Procedure Left Muscle sparing thoracotomy with left lower lobectomy, Mediastinal lymph node sampling Surgeon and Paint Roller Winder Surgeon: Osvaldo Rothman MD Assistants: Lilly Hawk MD, Uzair Quick MD Findings Only Peribronchial node appeared enlarged. Frozen section negative on bronchial margin Complications There were no periprocedural complications identified. Surgical Specimen Removed: Yes Specimen sent to Pathology: Yes Anesthetic Administered: GA, Epidural Grafts, Implants: None Output, Estimated Blood Loss: 20 Blood Admin during surgery: No Attending Statement First Assistan listed was medically necessary for the successful completion of the case Osvaldo Rothman MD Dec 17, 2016 15:24
[2016-12-17] MEDS ORDERED: Polyethylene Glycol (PEG) 17 Gm Powder PO PRN (15:50)
--- NOTE | 2016-12-17 15:53 | PCM.ANEP1 ---
Post Anesthesia PACU Phase 1 Assessment Anesthetic Administered: GA Level of Alertness: Sleeping, hard to arouse MOLINA's with Equal Strength: Yes Pain: No Nausea or Vomiting: No CV Function & Hydration Stable: Yes Airway Device: Oxygen Delivery: Simple Mask Lungs: Clear to Auscultation PACU Phase 2 Assessment Complications: No Follow up Care: N/A Patient Instructions Provided: N/A Austin Sotelo MD Dec 17, 2016 15:53
[2016-12-17] MEDS: fentaNYL-PF 50 mCg/mL 2 mL Inj IVPUSH PRN ×3 (16:04→16:35)
[2016-12-17] MEDS: Heparin 5,000 Unit/mL Inj SUBQ SCH (16:30)
--- NOTE | 2016-12-17 16:58 | DRSVH ---
PROCEDURE: X-RAY CHEST ONE VIEW, PORTABLE ([id number]) INDICATIONS: Status post left lower lobectomy TECHNIQUE: One view of the chest was acquired. COMPARISON: [facility], CR, XR CHEST 1VW (PORTABLE), 10/07/2016, 20:38. FINDINGS: Surgical changes and devices: 2 left surgical tubes. Left hemithorax postsurgical clips. Lungs and pleura: No pleural effusions or pneumothorax. New bibasilar atelectasis and right midlung platelike atelectasis. Mediastinum: Mediastinal contours appear normal. Heart size is prominent. Bones and chest wall: No suspicious bony lesions. Overlying soft tissues appear unremarkable. Left chest wall subcutaneous emphysema. IMPRESSION: Interval left lower lobectomy with left chest tubes. No pneumothorax. Show inspiration causing bibasilar and right midlung atelectasis. Dictated by: Karl Samuel M.D. on 12/17/2016 at 16:55 Approved by: Karl Samuel M.D. on 12/17/2016 at 16:56
--- NOTE | 2016-12-17 17:01 | OP ---
[address] [address] OPERATIVE REPORT PATIENT: BEN ALONSO : 1970 MR#: [id number] ADMIT: 12/17/2016 JOB ID: [id number] DATE OF SURGERY: 12/17/2016 PREOPERATIVE DIAGNOSIS(ES): Left lower lobe adenocarcinoma. POSTOPERATIVE DIAGNOSIS(ES): Left lower lobe adenocarcinoma. PROCEDURE PERFORMED: Left muscle-sparing posterolateral thoracotomy with left lower lobectomy with mediastinal lymph node sampling. SURGEON: Osvaldo Rothman MD GOVERNMENT DOCUMENTS LIBRARIAN: Daja Hawk MD and Uzair Quick MD COMPLICATIONS: None. CONDITION OF THE PATIENT: Stable. ESTIMATED BLOOD LOSS: 20 mL. INDICATIONS: The patient is a 46-year-old gentleman who has been struggling with back pain for a number of years. He was complaining of pain in the left upper back and ultimately a chest x-ray done September 2016 showed a left lung mass. There was some delay in care as he temporary ended up in an immigration [facility] center in [place], but he has since been released and got a biopsy and saw Dr. Massey, who sent him to me for surgical consultation. CT-guided biopsy on October 28 showed pulmonary adenocarcinoma. PET-CT showed a left lower lobe mass with a maximum SUV of 15.1, and the CT and the PET were not suggestive of an additional mediastinal adenopathy. Given the peripheral mass, with no radiographic evidence of mediastinal adenopathy, we decided to proceed with upfront surgery with a left lower lobectomy with mediastinal lymph node sampling. After discussing the risks, benefits, and alternatives, he is here today to have the operation done. PROCEDURE DETAILS: He first had an epidural catheter placed and an arterial line placed and then underwent double-lumen endotracheal intubation and then we placed him in a right lateral decubitus position, padding all pressure points. His left chest was prepped and draped in the usual sterile fashion. Surgical time-out was undertaken using safety checklist and all were in agreement. I began by making a posterolateral incision by dividing the skin and subcutaneous tissue and then moved the latissimus dorsi anteriorly by taking its attachment to the thoracolumbar fascia posteriorly and moved the serratus anterior without actually dividing any muscle and exposed the intercostal spaces. At that time we placed a scapula retractor and encountered the ribs, and entered the chest safely in the 5th intercostal space. After entering the chest, we used the retractor to spread the ribs carefully and opening it up slowly as the procedure went on to avoid any fractures. We used a [place] to retract the muscles anteriorly and posteriorly. Upon entering the chest, we did notice the tumor in the left lower lobe and we started the dissection by taking down the inferior pulmonary ligament and then exposed the major fissure. I dissected the pulmonary artery carefully and first identified the basilar trunk and divided it between 0 silk ties with a Prolene suture ligature on the patient's side and divided it. I then dissected the pulmonary artery branch to the superior segment and also divided it between silks and Prolene. After that I identified the inferior pulmonary vein going to most of the left lower lobe, dissected it circumferentially with careful dissection and blunt dissection, and again divided it between 0 silk ligatures with the Prolene on the patient's side. We noticed an additional branch of the inferior pulmonary vein going to the superior segment which also we divided between 0 silk ties and clips. At that point the fissure, which was almost complete, was completed with a firing of the Endo STEFANIE stapler with a SeamGuard buttressing system. After that I clamped the bronchus and we inflated the lung to make sure that I am not impinging the lingular or upper lobe bronchi. After that we divided the bronchus with a 30 mm TA stapler and sent the specimen off the field. We also swept up the perihilar lymph nodes and sent that as a separate specimen. We verified that the frozen section margin on the bronchus was negative and then we proceeded to take additional lymph nodes along the bronchus and on the pulmonary artery. We took a level 9 lymph node. We attempted to expose the subcarinal tunnel lymph node packet, but it was challenging. We did not notice any obvious abnormality there so we did not proceed further. I then retracted the lung posteriorly and examined level 6 and level 5 lymph nodes. I only noticed an obvious lymph node in the level 6 area anteriorly, and I proceeded to take that with a combination of blunt dissection and clips and sent it off for permanent analysis. At this point. We then made sure that we had no air leaks by inflating the lung under water and placed two 28-Kosovan chest tubes, one straight posterior to the apex and the right-angled anterior on the base, and placed pericostal sutures and watched the lung expand under direct vision and tied the sutures down. After that we reapproximated the serratus anterior muscle down to the fascia posteriorly with 0-Vicryl and the subcutaneous tissue was closed in layers with 3-0 Vicryl and skin was reapproximated with 4-0 Monocryl. Steri-Strips and a sterile dressing were applied. The patient was recovered from anesthesia and was taken to the recovery room in a stable condition.
[2016-12-17 17:02] LABS: BASOPHILS % (AUTO) 0 % (0-3); EOSINOPHILS % (AUTO) 0 % (0-5); MONOCYTES % (AUTO) 5.8 % (4-12); Mean Corpuscular Volume 86.4 fL (81-100); NEUTROPHILS % (AUTO) 89.6 % (40-74); Platelet Count 193 bil/L (150-400)
--- NOTE | 2016-12-17 18:35 | NUR ---
Arrival to [facility] Patient arrived to room 2006 s/p left lower lobectomy. Patient A&Ox3, denies pain, VSS. MOLINA and able to turn in bed independently. Chest tube x2 set to suction, patent and draining ser-sang fluid. Dressings are C/D/I. Epidural is going at 8ml/hr with a 3ml APPAREL FASHION DESIGNER bolus available Q15 min. Patient states pain is a 2/10. Patient feeling anxious and requesting anxiety meds. MD notified. Family at bedside, call light within reach.
[2016-12-17] MEDS ORDERED: LORazepam 0.5 mg Tablet PO PRN (18:55)
[2016-12-18] VITALS (15 sets, daily range): BP systolic 112–178; BP diastolic 71–105; PULSE 72–94; RESP 16–24; O2SAT 93–99
[2016-12-18] MEDS: Heparin 5,000 Unit/mL Inj SUBQ SCH ×3 (01:07→17:01)
[2016-12-18] MEDS: Sodium Chloride LOK Flush 10 mL Syringe IVFLUSH SCH ×3 (01:07→17:01)
[2016-12-18 02:48] LABS: BASOPHILS % (AUTO) 0.1 % (0-3); EOSINOPHILS % (AUTO) 0 % (0-5); MONOCYTES % (AUTO) 11.8 % (4-12); Mean Corpuscular Hemoglobin 28.8 pg (27.0-35.0); Mean Corpuscular Volume 86.2 fL (81-100); NEUTROPHILS % (AUTO) 79.9 % (40-74); Platelet Count 197 bil/L (150-400)
--- NOTE | 2016-12-18 07:08 | NUR ---
Chest Tubes/Pain Management Patient left chest tubes x2 patent and continuing to drain moderate amounts of sero-sanguineous fluid. Chest tube dressings clean/dry/intact; no crepitus or subcutaneous emphysema noted. Patient reports good pain relief with the epidural. Single episode of nausea overnight that resolved with zofran. Continue to monitor.
--- NOTE | 2016-12-18 08:37 | DRSVH ---
PROCEDURE: X-RAY CHEST ONE VIEW, PORTABLE ([id number]) INDICATIONS: Left lower lobectomy TECHNIQUE: One view of the chest was acquired. COMPARISON: [facility], CR, XR CHEST 1VW (PORTABLE), 12/17/2016, 16:40. [facility], CR, XR CHEST 1VW (PORTABLE), 10/07/2016, 20:38. FINDINGS: Surgical changes and devices: 2 left pleural drains are present in addition to multiple surgical clip s at the lower and midportion of the medial left hemithorax consistent with the history of left lower lobectomy. Lungs and pleura: No pleural effusions or pneumothorax. Lungs are somewhat difficult to assess due to reduced inspiratory volume but there appears to be improved atelectasis on the right when compared to the study from late yesterday and also mild postoperative atelectasis is present at the left lowe r lobe. Mediastinum: Mediastinal contours appear normal. Heart size is normal. Bones and chest wall: No suspicious bony lesions. Overlying soft tissues appear unremarkable. IMPRESSION: Expected postoperative appearance, after left lower lobectomy. 2 left pleural drains sherine ear in normal position, no pneumothorax. Improved aeration right lung. Dictated by: Grey Smith M.D. on 12/18/2016 at 8:34 Approved by: Grey Smith M.D. on 12/18/2016 at 8:35
[2016-12-18] MEDS ORDERED: fentaNYL 2 mCg/mL-Bupiv 0.125% 100 ML in IV Premix 1 EACH EPIDURAL SCH (10:14)
--- NOTE | 2016-12-18 14:45 | PROG NOTE ---
[address] [address] PROGRESS NOTE PATIENT: BEN ALONSO : 1970 MR#: [id number] ADMIT: 12/17/2016 JOB ID: [id number] DATE: 12/18/2016 SUBJECTIVE: Postop day one left lower lobectomy with mediastinal lymph node sampling. He is doing well though he feels that he does have pain when he coughs. He is afebrile, stable vital signs. Epidural catheter is in place. Dressing is dry. Abdomen is soft. His white count is 14.9, his hematocrit is 46.4, platelets are 197. Chemistries are normal. His blood sugar was slightly high at 156. A chest x-ray shows both drains in position, no pneumothorax, normal postop appearance. IMPRESSION AND PLAN: Doing well. Continue current care.
--- NOTE | 2016-12-18 16:07 | PROG NOTE ---
[address] [address] PROGRESS NOTE PATIENT: BEN ALONSO : 1970 MR#: [id number] ADMIT: 12/17/2016 JOB ID: [id number] DATE: ANESTHESIA EPIDURAL FOLLOWUP NOTE: SUBJECTIVE: A 46-year-old male, postop day number one, status post left lower lobectomy with two chest tubes in place. Since his surgery, the patient has done well. He is ambulating in the hallway. He is tolerating food without difficulty. He denies any itching and he denies any nausea. However, he reports that his pain level is uncomfortably high at current level of 7/10. OBJECTIVE: Vital signs stable. Afebrile. T6-[address] 7 cm at the skin, running an infusion of bupivacaine 0.125% with fentanyl 2 mcg/mL at 8 mL an hour. Platelet level 179. Heparin at 5000 units subcu q.8 h. Pain on the visual analog scale is 7/10. Bilateral motor strength, lower extremities 5/5. ASSESSMENT/PLAN: The patient requests additional medicine for pain control. Because of that. I altered his epidural PCEA to a straight MICROSOFT DYNAMICS DEVELOPER with only bupivacaine 0.125% and no fentanyl running at straight 8 mL an hour. I took away the button from the MICROSOFT DYNAMICS DEVELOPER because I thought it might be confusing for the patient to have two buttons. I ordered a standard hydromorphone MICROSOFT DYNAMICS DEVELOPER out of our standard pathway. I spoke to the nurse and I told her about the change in the plan as well as speaking to the patient. Hopefully this will help the patient so that he has less surgical site discomfort particularly at night when he is trying to sleep. Please feel free to call with changes in his pain regimen.
[2016-12-18] MEDS ORDERED: Ondansetron 2 mg/mL 2 mL Inj IVPUSH PRN (16:10)
[2016-12-18] MEDS ORDERED: Nalbuphine 10 mg/mL Inj IV PRN (16:15)
[2016-12-18] MEDS ORDERED: HYDROmorphone 0.5 mg/0.5 mL iSecure Syringe IVPUSH PRN (16:20)
[2016-12-18] MEDS ORDERED: Dextrose 5% 500 ML IV PRN (16:20)
[2016-12-18] MEDS: HYDROmorphone PCA 0.2 mg/mL 30 mL Inj IV PRN (16:46)
[2016-12-18] MEDS: BUPIVACAINE EPIDURAL SCH ×2 (16:48)
--- NOTE | 2016-12-18 17:39 | NUR ---
Pain Patient c/o 7/10 chest pain. PAin unrelieved by epidural bolus. Anesthesiologist notified and patient switched to bupvicaine epidural and hydromorphone OCA. This appears to work better for him chest pain is 5/10 currently. PAtient also c/o gas pain, MD notified and stated he will order simethicone PRN.
[2016-12-19] VITALS (19 sets, daily range): BP systolic 124–159; BP diastolic 77–100; PULSE 75–97; RESP 16–24; O2SAT 94–98
[2016-12-19] MEDS: HYDROmorphone PCA 0.2 mg/mL 30 mL Inj IV PRN ×3 (00:09→21:55)
[2016-12-19] MEDS: Sodium Chloride LOK Flush 10 mL Syringe IVFLUSH SCH ×3 (00:13→16:55)
[2016-12-19] MEDS: Heparin 5,000 Unit/mL Inj SUBQ SCH ×3 (00:13→16:54)
--- NOTE | 2016-12-19 06:34 | NUR ---
Anxiety/Pain Patient increasingly anxious about his surgical site and chest tubes. Patient preoccupied with the idea that his tubes are coming loose and that his epidural has come out. Dressings checked repeatedly and no sign of displacement found. Chest tubes set to suction, no air leak noted, no subcutaneous emphysema noted. Patient also reported unrelieved pain despite the epidural and TECHNICAL PRODUCT MANAGER. Discussed with Dr. Crump and TECHNICAL PRODUCT MANAGER dose increased per protocol. One time dose of ativan given for anxiety. Patient asleep after 0400.
--- NOTE | 2016-12-19 10:35 | DRSVH ---
PROCEDURE: X-RAY CHEST ONE VIEW, PORTABLE ([id number]) INDICATIONS: s/p lobectomy TECHNIQUE: One view of the chest was acquired. COMPARISON: None. FINDINGS: Surgical changes and devices: Left apical and left basal thoracostomy tubes are unchanged. Lungs and pleura: No pneumothorax. Volume loss at the left lung base is unchanged. Mediastinum: Mediastinal contours appear normal. Heart size is normal. Bones and chest wall: No suspicious bony lesions. Overlying soft tissues appear unremarkable. IMPRESSION: Postsurgical change. No pneumothorax. Dictated by: Jolynn Villa M.D. on 12/19/2016 at 10:32 Approved by: Jolynn Villa M.D. on 12/19/2016 at 10:33
--- NOTE | 2016-12-19 14:46 | NUR ---
Pain Dr. Crump removed one of the chest tubes this morning. Pt. reported pain is more tolerable. MOLD CUTTING MACHINE OPERATOR Dilaudid was titrated down to standard protocol (0.2 mg, Q 10 min. lockout, 1.2 mg/hr limit). He walked in the hallway x3 since this morning. Epidural site CDI. He also uses incentive spirometer as instructed.
--- NOTE | 2016-12-19 16:15 | PROG NOTE ---
[address] [address] PROGRESS NOTE PATIENT: BEN ALONSO : 1970 MR#: [id number] ADMIT: 12/17/2016 JOB ID: [id number] DATE: 12/19/2016 SUBJECTIVE: The patient was encountered in his ICU bed, upright and interacting with his significant other on entry of the room. I saw the patient in combination with the surgeon on-call, Dr. Crump. Dr. Crump explains that he had reviewed the chest film and determined that the upper of the two chest tubes was near the apex of the lung, likely corresponding to the patient's complaint of pleuritic pain with limited effects from epidural anesthesia. The patient confirmed this on questioning, describing a radicular band of sharp pleuritic pain at the level of the scapular spine and subclavicle. However, the incision site was well controlled, according to the patient's description. As mentioned, the patient was ambulatory during the time of evaluation, and had no other complaints. The plan will be to maintain the epidural analgesic infusion as established, since this appears to be adequate for controlling the patient's postoperative pain. The patient was evaluated on postoperative day two, 12/19/2016. MARIA GUADALUPE
--- NOTE | 2016-12-19 16:17 | PROG NOTE ---
[address] [address] PROGRESS NOTE PATIENT: BEN ALONSO : 1970 MR#: [id number] ADMIT: 12/17/2016 JOB ID: [id number] DATE: 12/19/2016 Postop day two, left lower lobectomy. He is doing well other than pain control. Overnight, he complained of a great deal of pain and had his EVS ATTENDANT increased. On questioning, it sounds that it is pain towards the apex of his chest more than the incision. On physical examination, his incision looks good. Neither chest tube has an air leak. On chest x-ray, the apical chest tube that is posterior. Appears to possibly be a bit far and could account for his discomfort. LABS: No new labs today. Chest x-ray reviewed. IMPRESSION AND PLAN: Doing well. I have removed the apical chest tube. This has resulted in significant improvement in his discomfort. The posterior chest tube will remain. I will order a chest x-ray and labs for tomorrow. We will continue his Campos catheter while his epidural remains in.
[2016-12-19] MEDS: BUPIVACAINE EPIDURAL SCH ×2 (16:55)
[2016-12-20] VITALS (15 sets, daily range): BP systolic 122–133; BP diastolic 74–92; PULSE 71–80; RESP 16–20; O2SAT 95–98
[2016-12-20] MEDS: Sodium Chloride LOK Flush 10 mL Syringe IVFLUSH SCH ×3 (00:58→17:26)
[2016-12-20] MEDS: Heparin 5,000 Unit/mL Inj SUBQ SCH ×3 (00:58→17:26)
[2016-12-20 03:29] LABS: BASOPHILS % (AUTO) 0.1 % (0-3); EOSINOPHILS % (AUTO) 0.4 % (0-5); MONOCYTES % (AUTO) 15.9 % (4-12); Mean Corpuscular Hemoglobin 28.9 pg (27.0-35.0); Mean Corpuscular Volume 86.6 fL (81-100); NEUTROPHILS % (AUTO) 64.7 % (40-74); Platelet Count 166 bil/L (150-400)
--- NOTE | 2016-12-20 06:07 | NUR ---
Pain/Ambulation Patient up ambulating in [place] before bed with FWW. Ambulating without apparent difficulty or shortness of breath. CASINO FLOOR PERSON continues at 0.2/10/1.2, with bupivacaine epidural at 8mL/hour. Patient reports only mild soreness in his left side after ambulation. Patient sleeping well overnight.
[2016-12-20] MEDS ORDERED: Polyethylene Glycol (PEG) 17 Gm Powder PO SCH (08:30)
--- NOTE | 2016-12-20 09:23 | PROG NOTE ---
[address] [address] PROGRESS NOTE PATIENT: BEN ALONSO : 1970 MR#: [id number] ADMIT: 12/17/2016 JOB ID: [id number] EPIDURAL PROGRESS NOTE: Day #3. DATE: SUBJECTIVE: The patient is a 46-year-old male who had left posterolateral thoracotomy with left lower lobectomy and mediastinal lymph node sampling on December 17, 2016, for left lower lobe adenocarcinoma. Preoperative epidural was placed by Dr. Felix Sotelo for postoperative pain control. The patient states overnight his pain has remained relatively unchanged. He continues to note left scapular and clavicular area pain which yesterday was attributed to the location of the chest tube being in the apex of the lung. His surgical left chest wall and insertion sites of the chest tubes are not painful, and the patient is satisfied with his pain relief in this area. OBJECTIVE: The patient currently has a thoracic epidural running at 8 mL/h. The site is clean with dried blood. He is nontender at this area. He has good lower extremity muscle strength and is ambulating as necessary. He is just starting to tolerate a diet. His epidural is bupivacaine at 0.125% running at 8 mL/h. In addition, he has a hydromorphone ENGINEERING AID for the left upper chest pain which is not covered by his epidural. Other medications include fentanyl p.r.n. for breakthrough pain, which has not been used. For DVT prophylaxis, the patient is currently on heparin 5000 units subcu q.8 h. Vital signs show a blood pressure 127/83, heart rate 75, respirations 16, temp 37.2, and pulse ox 95% on room air. Most recent labs have a platelet count of 166. There is no current coagulation panel. ASSESSMENT: The patient is currently postop day three from a left thoracotomy, with epidural running in place. The epidural is covering his surgical site and chest tube insertion sites well, although he continues to have ongoing pain in the left apex of his chest which seems to be correlated to the location of his chest tubes on chest x-ray. PLAN: We will continue epidural anesthesia until the surgeons have requested removal. Currently, he continues to have chest tubes in place, but he is starting to tolerate an oral diet. We will discuss the case with the surgical attending regarding ongoing management.
--- NOTE | 2016-12-20 10:05 | PCM.PNSURG ---
Subjective Date of Service: Dec 20, 2016 Visit Information: Left Lower Lobe Adenocarcinoma s/p Left lower lobectomy 12/17/2016 Post-Op Day # 3 Date of Admission: Dec 17, 2016 at 18:12 Hospital Day # 4 Subjective: Ambulating, Some pain, helped with PROCESSING ENGINEER Objective Vital Sign- Last 8 Hours Date Time Temp Pulse Resp B/P Pulse Ox O2 Delivery O2 Flow Rate FiO2 12/20/16 08:50 37.2 75 16 127/83 95 Room Air 12/20/16 08:40 Chest Tubes 12/20/16 06:02 16 95 12/20/16 06:01 16 95 12/20/16 03:40 36.9 71 20 123/77 95 Room Air Intake and Output- Last 8 Hour 12/20/16 Cumulative From/Thru 07:00 12/13/16 15:53 - 12/20/16 06:27 Intake Total 623 ml 5458 ml Output Total 875 ml 4655 ml Balance -252 ml 803 ml Intake Oral 500 ml 2860 ml IV Total 123 ml 2598 ml Output Urine Total 700 ml 4115 ml Chest Tube Drainage Total 175 ml 500 ml Estimated Blood Loss 40 ml # Bowel Movements 0 Chest: Dressing dry, No Airleak. CT Drained 200ml over 36 hrs Result Diagram: 12/20/16 0305 12/18/16 0240 Diagnostics: Chest Xray looks good Assessment & Plan Impression Doing well Problems: Plan DC basal chest tube DC Campos Plan to transition off IV to PO pain meds Suppositories & Laxatives Ambulate Discharge Planning - could be as early as tomorrow if doing well. Osvaldo Rothman MD Dec 20, 2016 10:05
[2016-12-20] MEDS ORDERED: Cisatracurium 2,000 mCg/mL 10 mL Inj ONE (10:29)
[2016-12-20] MEDS ORDERED: Phenylephrine/NS 100 mCg/mL 10 mL Syringe IVPUSH ONE (10:29)
[2016-12-20] MEDS ORDERED: Ondansetron 2 mg/mL 2 mL Inj ONE (10:29)
--- NOTE | 2016-12-20 10:31 | PCM.PROC ---
Procedure Note Date of Service: Dec 20, 2016 Pre Procedure Diagnosis: Primary diagnoses: Primary adenocarcinoma of the left lower lobe Other chronic conditions: 1. Hypertension 2. Depression and anxiety 3. Chronic back pain 4. Hypothyroidism 5. Obesity, BMI 32.8 Post Procedure Diagnosis: Same Procedure: Chest tube removal Provider and Junction Maker: Ramirez Souza PA-C Indication for Procedure: Postsurgical air leak has resolved and lung is fully expanded. Procedural Analgesia: None Procedure Details: The patient was positioned in a right side-lying position. Chest tube suture was cut. Chest tube was removed during sustained deep inspiration. The remaining suture was tied down and secured. An occlusive dressing of 4 x 4, bacitracin ointment, and Vaseline gauze was applied. The patient did not suck air during the procedure. The procedure was well-tolerated. Specimen: None Post Procedure Plan: Chest tube site dressing will remain in place for 24 hours. Ramirez Souza PA-C Dec 20, 2016 10:31
--- NOTE | 2016-12-20 10:49 | NUR ---
Social Work: Initial Assessment D: Per EMR review, pt is a 46 year old male admitted for Left Lower Lobe Adenocarcinoma. Pt is [facility] Medicaid; pt has no LTC or VA Benefits. PCP is Luli Cortes DO. NOK is Sarah Tyson, , . K[place]z Advanced directives information provided. Readmit score is low, 1. MEAL TEMPERER met with the patient and his at bedside. Pt speaks Micronesian and Kyrgyz and declined to have an compounding pharmacy technician present. Pt engaged with assessment. Sw role explained, contact information and d/c planning checklist provided. See initial assessment. Pt lives in [place] with his and children. The patient uses no DME at baseline and works as an hay farmer. Pt continues to drive, has never required HH or skilled rehab. Pt and both anticipate pt to discharge home with no sw needs. MEAL TEMPERER spoke with bedside RN who states that the pt has been I and she anticipates no sw discharge needs for the patient. A: Pt who is I at baseline. P: Evolving; Anticipate pt to discharge home via POV and no anticipated discharge needs. MEAL TEMPERER to continue to follow to assess for d/c needs. JOYCE Wilkes Addendum: 12/20/16 at 1055 by HUY CABAN Amended: Links added.
--- NOTE | 2016-12-20 14:44 | DRSVH ---
PROCEDURE: X-RAY CHEST ONE VIEW, PORTABLE ([id number]) INDICATIONS: s/p toracotmy, LL lobe resection TECHNIQUE: One view of the chest was acquired. COMPARISON: [facility], CR, XR CHEST 1VW (PORTABLE), 12/17/2016, 16:40. [facility], CR, XR CHEST 1VW (PORTABLE), 12/19/2016, 10:07. FINDINGS: Surgical changes and devices: Left apical pleural drain has been removed. Stable position of left ba silar pleural drain. Lungs and pleura: No pneumothorax. Volume loss at the left lung base is unchanged. Mediastinum: Mediastinal contours appear normal. Heart size is normal. Bones and chest wall: No suspicious bony lesions. Overlying soft tissues appear unremarkable. IMPRESSION: Stable postsurgical changes and no pneumothorax present. Dictated by: Agustin LEAVITT Interpreted: Grey Smith MD on 12/20/2016 at 10:32 Approved by: Grey Smith M.D. on 12/20/2016 at 14:42
--- NOTE | 2016-12-20 16:22 | DRSVH ---
PROCEDURE: X-RAY CHEST, TWO VIEWS ([id number]) INDICATIONS: s/p CT Removal TECHNIQUE: 2 views of the chest were acquired. COMPARISON: [facility], CR, XR CHEST 1VW (PORTABLE), 12/19/2016, 10:07. [facility], CR, XR CHEST 1VW (PORTABLE), 12/18/2016, 5:35. [facility], CR, XR CHEST 1VW (PORT ABLE), 12/17/2016, 16:40. [facility], CR, XR CHEST 1VW (PORTABLE), 12/20/2016, 3:52. [facility], CR, XR CHEST 2VW, 06/14/2016, 17:09. FINDINGS: Surgical changes and devices: Left hilar surgical clips in the left pleural drain has been removed. Lungs and pleura: Lucency seen along the descending aorta which likely represents small amount of pne umoperitoneum. Persistent left basilar opacity present. Mediastinum: Mediastinal contours are normal. Heart size is normal. Bones and chest wall: No suspicious bony abnormalities. Soft tissues appear unremarkable. IMPRESSION: 1. Removal of left pleural drain and lucency seen along the contour of the descending aorta likely re lated to trace pneumothorax. Dictated by: Agustin MONTES Interpreted: Grey Smith MD on 12/20/2016 at 15:52 Approved by: Grey Smith M.D. on 12/20/2016 at 16:20
--- NOTE | 2016-12-20 18:38 | NUR ---
BM Mirolax and suppository given today. Pt stated he had a small BM this afternoon. Pt also c/o gas pain. Suggested that the pt lay on his other side and to get up and ambulate when he feels the pain coming on and to encourage passing the gas. He stated he has noticed an increase in his gas since this morning. Educated on the stool softeners given and narcotic use and the importance.
[2016-12-20] MEDS ORDERED: HYDROmorphone 1 mg/mL Inj IVPUSH PRN (22:00)
[2016-12-21] MEDS: Sodium Chloride LOK Flush 10 mL Syringe IVFLUSH SCH ×2 (01:48→08:30)
[2016-12-21] MEDS: Heparin 5,000 Unit/mL Inj SUBQ SCH ×2 (01:48→08:21)
[2016-12-21 03:20] VITALS: BP 148/97; PULSE 73; RESP 20; O2SAT 98
--- NOTE | 2016-12-21 05:29 | NUR ---
Pain/sats/gas States incisional pain is OK, but c/o gas pain in lower left abdomen. Up walking in halls, taking fluids, had prune juice and simethicone, but c/o severe pain not controlled with pain meds. Surgeon notified and orders received. Oxycodone increased to 10 mg and patient states this has worked well for pain. Has started passing a little gas now and states his pain level is much improved.
[2016-12-21] MEDS ORDERED: Polyethylene Glycol (PEG) 17 Gm Powder PO SCH (08:30)
[2016-12-21 08:31] VITALS: BP 123/82; PULSE 74; RESP 18; O2SAT 97
[2016-12-21 10:03] VITALS: PULSE 77
--- NOTE | 2016-12-21 11:11 | PCM.PNSURG ---
Subjective Date of Service: Dec 21, 2016 Visit Information: Left Lower Lobe Adenocarcinoma s/p Left lower lobectomy 12/17/2016 Post-Op Day # 4 Date of Admission: Dec 17, 2016 at 18:12 Hospital Day # 5 Subjective: Some bloating and abdominal pain, otherwise feeling well Objective Vital Sign- Last 8 Hours Date Time Temp Pulse Resp B/P Pulse Ox O2 Delivery O2 Flow Rate FiO2 12/21/16 10:03 77 12/21/16 08:31 37.0 74 18 123/82 97 Room Air 12/21/16 03:20 37.1 73 20 148/97 98 Nasal Cannula 2.00 Intake and Output- Last 8 Hour 12/21/16 Cumulative From/Thru 07:00 12/13/16 15:53 - 12/21/16 06:20 Intake Total 800 ml 7476 ml Output Total 500 ml 6805 ml Balance 300 ml 671 ml Intake Oral 800 ml 4780 ml IV Total 2696 ml Output Urine Total 500 ml 6265 ml Chest Tube Drainage Total 500 ml Estimated Blood Loss 40 ml # Voids 1 1 # Bowel Movements 0 Chest: Incision C/D/I Result Diagram: 12/20/16 0305 12/18/16 0240 Assessment & Plan Impression Doing well Problems: Plan Minimize PO opioids Ambulate Discharge home when feeling well, may be later today F/U in 1 week with Chest Xray Osvaldo Rothman MD Dec 21, 2016 11:11
[2016-12-21 11:28] VITALS: BP 138/84; PULSE 70; RESP 18; O2SAT 97
--- NOTE | 2016-12-21 11:48 | PCM.DISURG ---
Surgical Discharge Instruction Date of Service Dec 21, 2016 Dates of Hospitalization Date of Hospital Admission Dec 17, 2016 at 18:12 Providers Admitting Physician: Osvaldo Rothman MD Primary Care Physician: Luli Cortes DO Attending Physician: Osvaldo Rothman MD Discharge Diagnosis Post Operative diagnosis Left lower lobe adenocarcinoma Diet Discharge Diet: No restrictions Activity Discharge Activity-General: Try not to overdue, Be up and about, Balance rest and activity, Activity as pain allows, Activity as energy allows, No driving while taking narcotic Dressing and Incisional Care Dressing Care: Keep dressing clean, dry & intact, Allow Steri Stripes to fall off Hygiene: May shower, DO NOT soak incision under water, NO bathtub, hot tub or whirlpool Additional Instructions Discharge Instructions Continue to use Incentive Spirometry a few times/hr, every hour Call the Surgery Department with any questions or concerns at [phone] Follow Up Plan Follow Up Plan Follow-up with Dr. Rothman in 1 week with a CXR (PA and Lat, reason: Follow-up s /p Left lower lobectomy) before your visit Follow-up Provider (F9): Osvaldo Rothman MD Follow-up appointment: Weeks (1) Call your provider for: Fever, Chills, Shortness of breath, Increasing abdominal pain, Vomiting, Wound redness, Increasing wound pain, Warmth to touch , Discharge @ incision, pus discharge Mile Moran PAC Dec 21, 2016 11:47
[2016-12-21] MEDS ORDERED: OXYC5TAB72 PO (12:21)
[2016-12-21] MEDS ORDERED: POLY17PO6 PO (12:21)
--- NOTE | 2016-12-21 12:31 | PCM.DC.SUR ---
Discharge Summary Date of Service: Dec 21, 2016 Date of Hospital Admission: Dec 17, 2016 at 18:12 Date of Operation(s): 12/17/2016 Date of Discharge: 12/21/2016 Diagnosis at Time of Discharge Left lower love adenocarcinoma, status post left lower lobe lobectomy Problems: Operation Left Lower lobe lobectomy Brief History and Physical: The patient is a 46-year-old gentleman who had been struggling with back pain for a number of years. He was complaining of pain in the left upper back and ultimately had a chest x-ray done in September 2016 which showed a left lung mass. There was some delay in care as he temporary [facility] in [facility] in [place], but he has since been released and got a biopsy and saw Dr. Massey, who sent him to me for surgical consultation. CT-guided biopsy on October 28 showed pulmonary adenocarcinoma. PET-CT showed a left lower lobe mass with a maximum SUV of 15.1, and the CT and the PET were not suggestive of an additional mediastinal adenopathy. Given the peripheral mass, with no radiographic evidence of mediastinal adenopathy, we decided to proceed with upfront surgery with a left lower lobectomy with mediastinal lymph node sampling. After discussing the risks, benefits, and alternatives, he presented for surgical resection. Hospital Course: Patient was admitted and underwent the above mentioned operation without complication. He had a pre-operative epidural and Campos catheters placed. On his first post op day, his pain was controlled with his epidural and INTERVENTIONAL RADIOLOGY TECH and his CXR was reviewed. On his second POD, he was having significant pain that was thought to be secondary to his apical chest tube which was later removed without difficulty. Prior to removal of the apical chest tube, neither chest tube demonstrated air leak and chest x-ray was stable. His INTERVENTIONAL RADIOLOGY TECH was increased to help with pain control overnight between postop day 1 and 2. On postop day 3 his epidural was removed and he was transitioned to oral medications for pain control. He was tolerating a regular diet. His basal chest tube was also removed on POD#3 and he was given a suppository and laxative with a result of a small bowel movement. His Campos was also removed and he was urinating without difficulty. On POD#3 his follow-up CXR after his CT was removed, showed minimal PTX and patient was doing well with no shortness of breath. He was working well with his incentive spirometer. On post-operative day #4 his pain was well controlled with oral analgesics, he was ambulating well in the halls without oxygen or shortness of breath and tolerating a regular diet. He had some abdominal cramping that improved with ambulation and simethicone/laxatives/ suppository. He was discharged with his family in stable condition and 1 week follow-up with Dr. Rothman with a CXR. Pathology: pending Disposition: Discharged to home with family in stable condition, his pain was well controlled , he was voiding, he was ambulating in the [place] and tolerating a regular diet without nausea/vomiting, he was breathing well and not requiring oxygen; He was passing flatus and had had a BM the day prior to discharge. Follow-up Plan: Follow-up with Dr. Rothman in 1 weeks with a PA AND LAT CXR Aspirin (Aspirin) 81 Mg Tablet 81 MG PO DAILY (Reported) Levothyroxine (Levothyroxine) 50 Mcg Tablet 50 MCG PO DAILY (Reported) Lisinopril (Lisinopril) 10 Mg Tablet 10 MG PO DAILY (Reported) Polyethylene Glycol 3350 (Miralax) 17 Gm Powd.pack 17 GM PO DAILY Sertraline HCl (Sertraline) 50 Mg Tablet 50 MG PO DAILY (Reported) hydrOXYzine Hcl (HydrOXYzine Hcl) 25 Mg Tablet 25-50 MG PO HS PRN PRN anx ( Reported) oxyCODONE (oxyCODONE) 5 Mg Tablet 5 MG PO Q3H PRN PRN For Moderate Pain copies to: Marvin Massey MD; Osvaldo Rothman MD, Erin D [facility] Dec 21, 2016 12:31
--- NOTE | 2016-12-21 13:15 | NUR ---
Social Work: Discharge D: Pt discussed with general surgery PA. She states that the patient is being discharged. Capacity for self-care and d/c needs discussed; no concerns or barriers identified. EMR reviewed; pt is ambulating I and participating in his own ADLs. URGENT CARE PHYSICIAN ASSISTANT met with the patient and at bedside to review d/c plan and assess for unmet needs. Pt and spouse confirm that they have no concerns about discharge. Bedside RN will be completing discharge instructions and paperwork. A: Pt who is I at baseline. P: Pt to discharge home via POV with no sw needs JOYCE Wilkes
--- NOTE | 2016-12-21 14:19 | NUR ---
Pt discharged home with family at approx 1415hrs Pt VS have been stable, his sats high 90's on room air. He has been mobilizing independently around the unit. His epidural was removed yesterday per report and the site is CDI. He had complained of some left sided pain across the top of his abdomen at the level of his diaphragm. This pain increased with deep breaths. This was 0/10 this morning and mild 1/10 at lunch time. He has a lot of great family support. I gave him written and verbal instructions to both him and his . they declined an meat and seafood clerk for discharge instructions. HL X 2 removed prior to discharge.
== END 2016-12-21 14:15 | disposition home or self-care (01) | DRG 165 ==
LOC: SAS 05:35 → PCC 18:12
PROVIDERS: ADMIT Student in an Organized Health Care Education/Training Program; ATTEND Student in an Organized Health Care Education/Training Program
PROC: 07B70ZX Excision of Thorax Lymphatic, Open Approach, Diagnostic (ICD-10-PCS; 2016-12-17)
PROC: 0BTJ0ZZ Resection of Left Lower Lung Lobe, Open Approach (ICD-10-PCS; principal; 2016-12-17 07:15)
DX: C34.32 Malignant neoplasm of lower lobe, left bronchus or lung (principal); I10 Essential (primary) hypertension; E66.9 Obesity, unspecified; Z68.32 Body mass index [BMI] 32.0-32.9, adult; E03.9 Hypothyroidism, unspecified